=== PATIENT | male | born 1955 | race Caucasian/White ===

== ENCOUNTER 2023-10-09 10:37 | Emergency (ER) | payer MEDICARE, BC ==
[2023-10-09 11:24] LABS: APPEARANCE,URINE TURBID (CLEAR); BILIRUBIN,URINE NEGATIVE (NEGATIVE); COLOR,URINE YELLOW (YELLOW); GLUCOSE,URINE NEGATIVE (NEGATIVE); KETONES,URINE NEGATIVE (NEGATIVE); LEUKOCYTE ESTERASE,URINE LARGE (NEGATIVE); NITRITE,URINE POSITIVE (NEGATIVE); OCCULT BLOOD,URINE MODERATE (NEGATIVE); PH,URINE 6.5 (5.0-8.0); PROTEIN,URINE 100 mg/dL (NEGATIVE); UROBILINOGEN,URINE 0.2 EU/dL (0.2-1.0)
[2023-10-09 11:28] LABS: HEMATOCRIT 31.3 % (38.4-49.7); HEMOGLOBIN 11.2 g/dL (12.9-16.9); MEAN CORPUSCULAR HEMOGLOBIN 31.2 pg (31.6-35.5); MEAN CORPUSCULAR HGB CONC 35.8 g/dL (31.6-35.5); MEAN CORPUSCULAR VOLUME 87.2 fL (81.4-99.0); PLATELET COUNT,PLT 257 K/uL (130-375); RED BLOOD CELL COUNT 3.59 M/uL (4.14-5.76); WHITE BLOOD CELL COUNT,WBC 5.7 K/uL (3.2-11.0)
[2023-10-09 11:29] LABS: AMORPHOUS SEDIMENT,URINE MANY; BACTERIA,URINE MANY; EPITHELIAL CELLS,URINE NOT SEEN; MUCUS,URINE NOT SEEN; RBC,URINE 50-75 (0-5); WBC,URINE PACKED (0-5)
[2023-10-09] MEDS: Sodium Chloride 0.9% 1,000 ML IV SCH ×2 (11:49→12:49)
[2023-10-09 11:50] LABS: A/G RATIO 0.7 (1.2-2.2); ALANINE AMINOTRANSFERASE,ALT 20 U/L (12-78); ALBUMIN 3.1 g/dL (3.4-5.0); ALKALINE PHOSPHATASE 90 U/L (46-116); ASPARTATE AMNIOTRANSFERASE,AST 21 U/L (15-37); BILIRUBIN TOTAL 0.9 mg/dL (0.2-1.0); BLOOD UREA NITROGEN,BUN 25 mg/dL (7-18); CALCIUM 8.6 mg/dL (8.5-10.1); CARBON DIOXIDE,CO2 23 mmol/L (21-32); CHLORIDE,CL 98 mmol/L (100-108); CREATININE 2.1 mg/dL (0.8-1.3); ESTIMATED GFR 34 mL/min (>60); GLUCOSE RANDOM 110 mg/dL (74-106); POTASSIUM,K 3.6 mmol/L (3.6-5.2); PROTEIN TOTAL,TP 7.5 g/dL (6.4-8.2); SODIUM,NA 131 mmol/L (140-148)
[2023-10-09 11:55] LABS: LACTIC ACID 1.1 mmol/L (0.4-2.0)
[2023-10-09 11:56] LABS: BAND ABSOLUTE MAN 0.57 K/uL; BAND PERCENT MAN 10 % (5-11); LYMPHOCYTES ABSOLUTE MAN 0.57 K/uL (0.8-3.3); LYMPHOCYTES PERCENT MAN 10 % (24-44); MONOCYTES ABSOLUTE MAN 1.94 K/uL (0.20-0.90); MONOCYTES PERCENT MAN 34 % (2-6); NEUTROPHILS ABSOLUTE MAN 2.62 K/uL (1.0-7.6); SEG NEUTROPHILS PERCENT MAN 46 % (36-66)
[2023-10-09 12:00] LABS: ANION GAP 13.6 mmol/L (5.0-14.0); C-REACTIVE PROTEIN 24.86 mg/dL (<0.50)
[2023-10-09] MEDS: Magnesium Oxide 400 MG Tab PO ONE (12:23)
[2023-10-09] MEDS ORDERED: Ampicillin 1 GM in Sodium Chloride 0.9% 50 ML IV ONE (12:46)
[2023-10-09] MEDS: Ampicillin 1 GM in Sodium Chloride 0.9% 50 ML IV ONE (13:01)
== END 2023-10-09 16:27 | disposition home or self-care (01) ==
LOC: JP.ED 10:37
DX: N39.0 Urinary tract infection, site not specified (principal); I10 Essential (primary) hypertension; Z86.16 Personal history of COVID-19; Z79.899 Other long term (current) drug therapy; Z79.891 Long term (current) use of opiate analgesic
CPT/HCPCS: 36415; 71046; 80053; 81001; 83605; 83735; 85025; 86140; 87086; 96361; 96365; 99284; A9270; J0290; J3490; J7030; 99283